=== PATIENT | female | born 1930 | race Caucasian/White ===

== ENCOUNTER 2016-11-22 14:15 | Emergency (ER) | payer MEDICARE ==
[~2016-11-22] VITALS: Wt 77.1 kg
[~2016-11-22 14:15] MED LIST: DAYPRO600 M1 PO; HYDROCODONE BIT1 T11 PO; LISINOPRIL10 M1 PO; LOPRESSOR50 M1 PO; OMEPRAZOLE20 M2 PO; ZOFRAN ODT4 MG SL
[2016-11-22] MEDS ORDERED: PHENERGAN25 M3 PO (14:18)
[2016-11-22 14:40] LABS: BASO % 0.5 % (0.0-1.0); EOS # 0.2 10*3/uL (0.0-0.4); EOS % 1.7 % (1.0-4.0); HEMATOCRIT 39.3 % (37.0-47.0); LYMPH # 2.6 10*3/uL (1.3-4.4); LYMPH % 29.3 % (27.0-41.0); MEAN CELL VOLUME 71.7 fl (81.0-99.0); MEAN CORPUSCULAR HGB 21.9 pg (27.0-31.0); MEAN CORPUSCULAR HGB CONC 30.5 g/dl (33.0-37.0); MEAN PLATELET VOLUME 10.2 fl (9.6-12.3); MONO # 0.7 10*3/uL (0.1-1.0); MONO % 8.3 % (3.0-9.0); NEUT # 5.3 10*3/uL (2.3-7.9); NEUT % 59.9 % (47.0-73.0); PLATELET COUNT AUTOMATED 203 10*3/uL (130-400); RED BLOOD COUNT 5.48 10*6/uL (4.10-5.10); WHITE BLOOD COUNT 8.9 10*3/uL (4.8-10.8)
[2016-11-22 14:50] LABS: PROTHROMBIN TIME 10.4 SECONDS (9.0-12.4)
[2016-11-22 14:57] LABS: ALBUMIN 3.5 gm/dl (3.1-4.5); ALKALINE PHOSPHATASE 168 U/L (45-117); BILIRUBIN, TOTAL 0.4 mg/dl (0.2-1.0); BUN 18 mg/dl (7-24); CARBON DIOXIDE 23 mmol/L (21-32); CHLORIDE 108 mmol/L (98-107); EST GLOM FILT AFRICAN AMERICAN 53 ml/min; GLUCOSE 109 mg/dL (65-99); MAGNESIUM 2.2 mg/dL (1.5-2.1); POTASSIUM 4.5 mmol/L (3.5-5.1); SGOT/AST 45 IU/L (3-35); SGPT/ALT 28 U/L (12-78); SODIUM 140 mmol/L (136-145); TOTAL PROTEIN 6.9 gm/dL (6.4-8.2)
[2016-11-22 14:58] LABS: TROPONIN I < 0.015 ng/ml (<0.045)
== END 2016-11-22 15:52 | disposition left against medical advice (07) ==
LOC: ED 14:15
PROVIDERS: Nurse Practitioner Family
DX: R07.9 Chest pain, unspecified (principal); I10 Essential (primary) hypertension

== ENCOUNTER 2016-12-12 13:07 | Inpatient (IN) | payer MEDICARE ==
[~2016-12-12] VITALS: Ht 165.1 cm; Wt 79.0 kg
[~2016-12-12 13:07] MED LIST changes: +PHENERGAN25 M3 PO
[2016-12-12 13:15] VITALS: BP 168/60
[2016-12-12 14:31] LABS: BASO % 0.2 % (0.0-1.0); EOS # 0.1 10*3/uL (0.0-0.4); EOS % 0.5 % (1.0-4.0); HEMATOCRIT 37.9 % (37.0-47.0); HEMOGLOBIN 11.4 g/dl (12.0-16.0); LYMPH # 0.9 10*3/uL (1.3-4.4); MEAN CELL VOLUME 72.9 fl (81.0-99.0); MEAN CORPUSCULAR HGB 21.9 pg (27.0-31.0); MEAN CORPUSCULAR HGB CONC 30.1 g/dl (33.0-37.0); MEAN PLATELET VOLUME 10.5 fl (9.6-12.3); MONO # 0.3 10*3/uL (0.1-1.0); MONO % 3.6 % (3.0-9.0); NEUT # 8.1 10*3/uL (2.3-7.9); NEUT % 85.4 % (47.0-73.0); PLATELET COUNT AUTOMATED 194 10*3/uL (130-400); RED CELL DISTRI WIDTH 17.5 % (0-14.5); WHITE BLOOD COUNT 9.4 10*3/uL (4.8-10.8)
[2016-12-12 14:38] LABS: PROTHROMBIN TIME 10.6 SECONDS (9.0-12.4)
[2016-12-12 14:46] LABS: ALBUMIN 3.4 gm/dl (3.1-4.5); ALKALINE PHOSPHATASE 237 U/L (45-117); BILIRUBIN, TOTAL 0.7 mg/dl (0.2-1.0); BUN 20 mg/dl (7-24); CARBON DIOXIDE 25 mmol/L (21-32); CHLORIDE 107 mmol/L (98-107); CKMB 3.7 ng/ml (0.5-3.6); CPK 45 U/L (26-192); EST GLOM FILT AFRICAN AMERICAN > 60 ml/min; GLUCOSE 130 mg/dL (65-99); LDH 316 U/L (84-246); POTASSIUM 4.4 mmol/L (3.5-5.1); SGOT/AST 265 IU/L (3-35); SGPT/ALT 106 U/L (12-78); SODIUM 140 mmol/L (136-145); TOTAL PROTEIN 6.6 gm/dL (6.4-8.2)
[2016-12-12 14:48] LABS: C-REACTIVE PROTEIN < 0.29 MG/DL (0-0.3); TROPONIN I < 0.015 ng/ml (<0.045)
[2016-12-12 15:56] LABS: BILIRUBIN NEGATIVE (NEGATIVE); BLOOD NEGATIVE (NEGATIVE); CLARITY SL CLOUDY (CLEAR); COLOR YELLOW (YELLOW); GLUCOSE NEGATIVE (NEGATIVE); KETONE NEGATIVE (NEGATIVE); LEUKO ESTERASE 2+ (NEGATIVE); NITRITE NEGATIVE (NEGATIVE); PROTEIN NEGATIVE (NEGATIVE); SPECIFIC GRAVITY 1.015 (1.005-1.030); UROBILINOGEN >= 8.0 E.U./dl (0.2-1.0)
[2016-12-12 16:00] VITALS: BP 158/64
[2016-12-12 16:05] LABS: BACTERIA 4+; RBC 0-2 rbc/hpf (0-2); URINE REFLEX COMMENT YES (NO); WBC 21-30 wbc/hpf (0-5)
[2016-12-12] MEDS ORDERED: LISINOPRIL20 MG PO (17:05)
[2016-12-12] MEDS ORDERED: PRAMIPEXOLE DI0.5 MG PO (17:05)
[2016-12-12] MEDS ORDERED: CELECOXIB200 M1 PO (17:06)
[2016-12-12] MEDS ORDERED: ZOLPIDEM TART5 MG PO (17:06)
[2016-12-12 17:19] VITALS: BP 152/80
[2016-12-12 19:40] LABS: HEMOGLOBIN A1c 5.5 % (4.8-5.6)
[2016-12-12 20:00] VITALS: BP 163/70
[2016-12-13] VITALS: BP 146/57
[2016-12-13 04:23] LABS: BASO % 0.2 % (0.0-1.0); EOS # 0.1 10*3/uL (0.0-0.4); EOS % 0.6 % (1.0-4.0); HEMATOCRIT 36.2 % (37.0-47.0); HEMOGLOBIN 11.1 g/dl (12.0-16.0); LYMPH # 1.6 10*3/uL (1.3-4.4); LYMPH % 16.6 % (27.0-41.0); MEAN CELL VOLUME 71.1 fl (81.0-99.0); MEAN CORPUSCULAR HGB 21.8 pg (27.0-31.0); MEAN CORPUSCULAR HGB CONC 30.7 g/dl (33.0-37.0); MEAN PLATELET VOLUME 10.8 fl (9.6-12.3); MONO % 10.2 % (3.0-9.0); NEUT # 6.9 10*3/uL (2.3-7.9); NEUT % 72.1 % (47.0-73.0); PLATELET COUNT AUTOMATED 171 10*3/uL (130-400); RED BLOOD COUNT 5.09 10*6/uL (4.10-5.10); RED CELL DISTRI WIDTH 17.3 % (0-14.5); WHITE BLOOD COUNT 9.6 10*3/uL (4.8-10.8)
[2016-12-13 04:55] LABS: ALBUMIN 2.9 gm/dl (3.1-4.5); BUN 19 mg/dl (7-24); CARBON DIOXIDE 25 mmol/L (21-32); CHLORIDE 106 mmol/L (98-107); EST GLOM FILT AFRICAN AMERICAN > 60 ml/min; GLUCOSE 91 mg/dL (65-99); MAGNESIUM 2.1 mg/dL (1.5-2.1); POTASSIUM 4.3 mmol/L (3.5-5.1); SGOT/AST 213 IU/L (3-35); SODIUM 138 mmol/L (136-145)
[2016-12-13 05:03] LABS: ALKALINE PHOSPHATASE 274 U/L (45-117); BILIRUBIN, TOTAL 1.6 mg/dl (0.2-1.0); FREE T4 1.31 ng/dl (0.76-1.46); PHOSPHOROUS 3.4 mg/dL (2.5-4.9); SGPT/ALT 173 U/L (12-78); THYROID STIM HORMONE (HS) 0.667 uIU/ml (0.358-4.75)
[2016-12-13 07:06] LABS: HEPATITIS C VIRUS ANTIBODY <0.1 s/co (0.0-0.9)
[2016-12-13 08:00] VITALS: BP 136/52
[2016-12-13 12:00] VITALS: BP 148/53
[2016-12-13 13:05] LABS: FOLIC ACID 11.73 ng/mL (>5.38); VITAMIN D, 25-HYDROXY 37.1 ng/mL (30-100)
[2016-12-13 15:01] VITALS: BP 112/64
[2016-12-13] MEDS ORDERED: IMDUR SA60 M1 PO (15:34)
[2016-12-13] MEDS ORDERED: NIFEDIPINE ER30 M1 PO (15:34)
[2016-12-13] MEDS ORDERED: HYDR25T PO (15:34)
[2016-12-13 16:00] VITALS: BP 111/53
== END 2016-12-13 16:30 | disposition home or self-care (01) | DRG 313 ==
LOC: ED 13:07 → 5E 16:03 → EDHOLD 16:03 → 5E 16:34
PROVIDERS: Internal Medicine; Physician Assistant
DX: R07.89 Other chest pain (principal); E44.0 Moderate protein-calorie malnutrition; R00.1 Bradycardia, unspecified; R10.13 Epigastric pain; I12.9 Hypertensive chronic kidney disease with stage 1 through stage 4 chronic kidney disease, or unspecified chronic kidney disease; K21.9 Gastro-esophageal reflux disease without esophagitis; R74.0 Nonspecific elevation of levels of transaminase and lactic acid dehydrogenase [LDH]; D50.9 Iron deficiency anemia, unspecified; R73.9 Hyperglycemia, unspecified; N18.3 Chronic kidney disease, stage 3 (moderate); R82.71 Bacteriuria; Z90.49 Acquired absence of other specified parts of digestive tract; Z90.710 Acquired absence of both cervix and uterus; Z83.3 Family history of diabetes mellitus; Z82.3 Family history of stroke; Z90.722 Acquired absence of ovaries, bilateral; Z90.79 Acquired absence of other genital organ(s); Z80.0 Family history of malignant neoplasm of digestive organs; Z79.899 Other long term (current) drug therapy; Z68.28 Body mass index [BMI] 28.0-28.9, adult

== ENCOUNTER 2016-12-14 10:47 | Inpatient (IN) | payer MEDICARE ==
[~2016-12-14] VITALS: Ht 165.1 cm; Wt 78.7 kg
[2016-12-14] VITALS (9 sets, daily range): BP systolic 107–150; BP diastolic 44–99
--- NOTE | ~2016-12-14 | CON ---
[place], [place] REPORT OF CONSULTATION [id number] UNIT #: [id number] ROOM: 519 DOCTOR: TABITHA MATUTE [facility] BIRTHDATE: [birth year] DOS: 12/14/2016 HISTORY OF PRESENT ILLNESS: This is an 86-year-old female came in with history of palpitations, not feeling well, and came to the Emergency Room, but denies any dizziness, any progressive fatigue or lightheaded or dyspnea. Not in a timely on last admission has any history of syncope or presyncope. The patient has a history of hypertension and has been on adjusted medication, last time rate was below 50s and hence the beta blocking agents has been stopped and readjust other medications to maintain the optimal blood pressure. Now the vital signs were stable, but the patient having frequent PACs quite often but did not document any atrial fibrillation at any time. Heart rate never been more than 100 or 110 showed the low rate is more than 57. No extreme tachycardia or bradycardia. No history of symptoms unlikely. The patient does not need any pacemaker at this time. The patient has some chest discomfort last admission. She thought epigastric, but last time stress test was in 2007. No recent workup for coronary artery disease. No history of heart attack. No history of smoking. The patient has a history of chronic kidney disease stage 3, hypertension, and gastroesophageal reflux disease. PAST SURGICAL HISTORY: History of tonsillectomy and adenoidectomy, abdominal hysterectomy and bilateral salpingo-oophorectomy. The patient has history of cholecystectomy. SOCIAL HISTORY: No alcohol, drug, or tobacco use. FAMILY HISTORY: Father has history of stroke and , history of esophageal cancer. Mother ; history of stroke. ALLERGIES: No known allergies. MEDICATIONS: The patient is on Celebrex taken as needed. The patient is on hydrochlorothiazide, isosorbide mononitrate, lisinopril, nifedipine, and omeprazole. REVIEW OF SYSTEMS: HEENT: Unremarkable. CARDIOPULMONARY: As described. GASTROINTESTINAL: As described. GENITOURINARY: As described. NEUROLOGICAL: No stroke. No syncope. PHYSICAL EXAMINATION: GENERAL: Alert, responding well. SKIN: Warm, not diaphoretic. VITAL SIGNS: Blood pressure 131/90, afebrile, and respiratory rate 20. LABORATORY DATA: Hemoglobin 11.3. Electrolytes are normal. Creatinine is 1.23. GFR is 41. Troponin is unremarkable. DIAGNOSIS: Frequent PACs and with symptoms, nonsustained ventricular [place], [place] REPORT OF CONSULTATION NAME: IRENE MI UNIT #: [id number] ROOM: [facility] DOCTOR: TABITHA MATUET [facility] BIRTHDATE: [birth year] tachycardia. No documented atrial fibrillation and a small dose of beta shawn and is on Lanoxin. Monitor the patient with stable heart rate. No extreme tachycardia or bradycardia. Probably, we will discharge the patient and follow the patient as an outpatient in a day or two, but I will rather monitor the patient with small dose of beta shawn and Lanoxin today and may be in the morning tomorrow and may be discharged tomorrow afternoon. I will follow the patient as an outpatient. May do the myocardial perfusion scan as an outpatient or in this hospital as an outpatient. I will review the scan and if this scan is abnormal, further evaluation for coronary artery disease, otherwise conservative medical therapy. I do not feel at this time, the patient is not quite symptomatic to do pacemaker. No need for pacemaker at this time. ANGE LU MD CM:CONSTR:REPORT OF CONSULTATION 13 12/14/16 2222 interface
[~2016-12-14 10:47] MED LIST changes: +CELECOXIB200 M1 PO; +HYDR25T PO; +IMDUR SA60 M1 PO; +LISINOPRIL20 MG PO; +NIFEDIPINE ER30 M1 PO; +PRAMIPEXOLE DI0.5 MG PO; +ZOLPIDEM TART5 MG PO
[2016-12-14 11:23] LABS: BASO % 0.4 % (0.0-1.0); EOS # 0.1 10*3/uL (0.0-0.4); EOS % 0.8 % (1.0-4.0); HEMATOCRIT 36.9 % (37.0-47.0); HEMOGLOBIN 11.3 g/dl (12.0-16.0); LYMPH # 1.7 10*3/uL (1.3-4.4); LYMPH % 20.1 % (27.0-41.0); MEAN CELL VOLUME 71.9 fl (81.0-99.0); MEAN CORPUSCULAR HGB CONC 30.6 g/dl (33.0-37.0); MEAN PLATELET VOLUME 10.2 fl (9.6-12.3); MONO # 1.3 10*3/uL (0.1-1.0); MONO % 14.9 % (3.0-9.0); NEUT # 5.4 10*3/uL (2.3-7.9); NEUT % 63.6 % (47.0-73.0); PLATELET COUNT AUTOMATED 188 10*3/uL (130-400); RED BLOOD COUNT 5.13 10*6/uL (4.10-5.10); RED CELL DISTRI WIDTH 17.6 % (0-14.5); WHITE BLOOD COUNT 8.5 10*3/uL (4.8-10.8)
[2016-12-14 11:31] LABS: PROTHROMBIN TIME 10.8 SECONDS (9.0-12.4)
[2016-12-14 11:42] LABS: BUN 21 mg/dl (7-24); CARBON DIOXIDE 24 mmol/L (21-32); CHLORIDE 104 mmol/L (98-107); EST GLOM FILT AFRICAN AMERICAN 50 ml/min; GLUCOSE 160 mg/dL (65-99); POTASSIUM 4.1 mmol/L (3.5-5.1); SODIUM 138 mmol/L (136-145)
[2016-12-14 11:48] LABS: THYROID STIM HORMONE (HS) 0.937 uIU/ml (0.358-4.75)
[2016-12-14 11:49] LABS: TROPONIN I < 0.015 ng/ml (<0.045)
[2016-12-15] VITALS: BP 136/59
[2016-12-15 06:59] LABS: BASO % 0.4 % (0.0-1.0); EOS # 0.1 10*3/uL (0.0-0.4); EOS % 1.4 % (1.0-4.0); HEMATOCRIT 37.3 % (37.0-47.0); HEMOGLOBIN 11.7 g/dl (12.0-16.0); LYMPH # 2.5 10*3/uL (1.3-4.4); MEAN CELL VOLUME 70.9 fl (81.0-99.0); MEAN CORPUSCULAR HGB 22.2 pg (27.0-31.0); MEAN CORPUSCULAR HGB CONC 31.4 g/dl (33.0-37.0); MEAN PLATELET VOLUME 10.9 fl (9.6-12.3); MONO # 1.2 10*3/uL (0.1-1.0); MONO % 14.8 % (3.0-9.0); NEUT # 4.2 10*3/uL (2.3-7.9); PLATELET COUNT AUTOMATED 194 10*3/uL (130-400); RED BLOOD COUNT 5.26 10*6/uL (4.10-5.10); RED CELL DISTRI WIDTH 18.1 % (0-14.5); WHITE BLOOD COUNT 8.1 10*3/uL (4.8-10.8)
[2016-12-15 07:04] LABS: BUN 19 mg/dl (7-24); CARBON DIOXIDE 24 mmol/L (21-32); CHLORIDE 103 mmol/L (98-107); EST GLOM FILT AFRICAN AMERICAN > 60 ml/min; GLUCOSE 81 mg/dL (65-99); MAGNESIUM 2.1 mg/dL (1.5-2.1); PHOSPHOROUS 2.7 mg/dL (2.5-4.9); POTASSIUM 4.2 mmol/L (3.5-5.1); SODIUM 136 mmol/L (136-145)
[2016-12-15 08:00] VITALS: BP 139/62
[2016-12-15 12:00] VITALS: BP 125/58
[2016-12-15] MEDS ORDERED: LANOXIN0.125 MG PO (14:55)
[2016-12-15] MEDS ORDERED: LOPRESSOR25 MG PO (14:55)
== END 2016-12-15 16:10 | disposition home or self-care (01) | DRG 310 ==
LOC: ED 10:47 → EDHOLD 13:39 → 5E 14:02
PROVIDERS: Emergency Medicine; Student in an Organized Health Care Education/Training Program
DX: I47.1 Supraventricular tachycardia (principal); N18.3 Chronic kidney disease, stage 3 (moderate); I12.9 Hypertensive chronic kidney disease with stage 1 through stage 4 chronic kidney disease, or unspecified chronic kidney disease; F41.9 Anxiety disorder, unspecified; R73.9 Hyperglycemia, unspecified; D50.9 Iron deficiency anemia, unspecified; K21.9 Gastro-esophageal reflux disease without esophagitis; I49.1 Atrial premature depolarization; Z90.710 Acquired absence of both cervix and uterus; Z90.722 Acquired absence of ovaries, bilateral; Z79.899 Other long term (current) drug therapy; Z90.49 Acquired absence of other specified parts of digestive tract; Z82.3 Family history of stroke; Z80.0 Family history of malignant neoplasm of digestive organs; Z83.3 Family history of diabetes mellitus

== ENCOUNTER → 2017-11-07 | Outpatient (CLI) | payer MEDICARE, BC ==
[~2017-11-07] MED LIST changes: +LANOXIN0.125 MG PO; +LOPRESSOR25 MG PO
== END | disposition home or self-care (01) ==
LOC: US 06:26
DX: K76.9 Liver disease, unspecified (principal); Z90.49 Acquired absence of other specified parts of digestive tract

== ENCOUNTER → 2018-01-15 | Outpatient (CLI) | payer MEDICARE, BC ==
[~2018-01-15] MED LIST changes: +ELIQUIS5 M1 PO; +METOPROLOL SUCC50 M1 PO; +OSTERA TABLET1 EACH PO; +[UNRECOGNIZED DRUG - REMARK]
== END | disposition home or self-care (01) ==
LOC: CT 10:41
DX: K44.9 Diaphragmatic hernia without obstruction or gangrene (principal); R11.0 Nausea

== ENCOUNTER → 2018-02-13 | Outpatient (CLI) | payer MEDICARE, BC | END | disposition home or self-care (01) | LOC: RAD 10:39 | DX: M47.892 Other spondylosis, cervical region (principal); M47.896 Other spondylosis, lumbar region; M81.0 Age-related osteoporosis without current pathological fracture; M25.78 Osteophyte, vertebrae; M54.2 Cervicalgia; M54.5 Low back pain ==

== ENCOUNTER → 2018-03-18 | Day surgery (SDC) | payer MEDICARE, BC ==
[~2018-03-18] VITALS: Ht 165.1 cm; Wt 72.6 kg
--- NOTE | ~2018-03-18 | O ---
[place], [place] OPERATIVE NOTE [id number] UNIT #: [id number] ROOM: DOCTOR: DONNELL LUGO MD BIRTHDATE: [birth year] DOS: 04/03/2018 HISTORY OF PRESENT ILLNESS: An 87-year-old patient who was presented with retained biliary stent. The patient is status post previous ERCP and biliary work. ALLERGIES: No known medication. PAST MEDICAL HISTORY: Atrial fibrillation. PAST MEDICAL HISTORY: Hypertension. FAMILY HISTORY: Esophageal carcinoma in father. SOCIAL HISTORY: Nonsmoker, nonalcohol consumer. PAST SURGICAL HISTORY: Cholecystectomy, hysterectomy, tonsillectomy, and papillotomy. PROCEDURE: Today's procedure part of investigation is ERCP plus removal of the common duct retained stent with a snare plus ERCP and balloon sweep of common duct and sludge extractions. PREMEDICATION: Propofol by Anesthesia. SCOPE: Olympus side-viewing duodenoscope. REPORT: After putting the patient in left lateral position and application of lubricant to the scope, the scope was introduced. Thereafter, under direct visualization, I advanced through the length of esophagus into gastric pouch in front of the duodenal bulb. Existing stent was snared and orally extracted. After that scope was reintroduced back to the common duct and papilla of Vater was re-approached with balloon was dilated and balloon over the guidewire was sent to the proximal hepatic ducts. Multi sweeps was done, sludge and small debris and small stones extracted. The patient extubated, tolerated the procedure well. IMPRESSION: ERCP and retained common duct stent removal plus balloon sweep of common bile duct, and removal of sludge and small stones and dilation of papilla. [place], [place] OPERATIVE NOTE NAME: IRENE MI UNIT #: [id number] ROOM: DOCTOR: DONNELL LUGO MD BIRTHDATE: [birth year] DONNELL LUGO MD CM:OPRECORD:OPERATIVE NOTE [id number] DONNELL LUGO MD 04/03/18 1723 interface
--- NOTE | ~2018-03-18 | O ---
[place], [place] OPERATIVE NOTE [id number] UNIT #: [id number] ROOM: DOCTOR: BRITTNEY MATUTE,DONNELL BIRTHDATE: [birth year] DOS: 04/01/2018 INDICATIONS: The patient has presented today 87 years old for removal of retained biliary stent. ALLERGIES: No known medication. PAST MEDICAL HISTORY: Atrial fibrillation, hypertension. SOCIAL HISTORY: Nonsmoker, nonalcohol consumer. PAST SURGICAL HISTORY: Hysterectomy, cholecystectomy, tonsillectomy. PROCEDURE: Today's procedure, which is 03/18/2018 ____. Today's procedure on 03/18/2018. IMPRESSION: ERCP plus removal of obstructed stent and balloon sweep of common duct. PREMEDICATION: Propofol. SCOPE: Olympus side-viewing duodenoscope. REPORT: After putting the patient in left lateral position and application of lubricant to the scope, the scope was introduced; thereafter, under direct visualization, advanced through the length of esophagus without difficulty into gastric pouch into duodenal bulb. Obstructed common duct stent was snared and orally pulled out. At this stage, cannulization of common duct was undertaken. Hepatic radicles opacified guidewire was introduced. DONNELL LUGO MD CM:OPRECORD:OPERATIVE NOTE [id number] DONNELL LUGO MD 04/03/18 1027 GARY PERDOMO MIS.R
[2018-03-18 11:00] VITALS: BP 149/59
[2018-03-18 13:58] VITALS: BP 83/32
[2018-03-18 14:13] VITALS: BP 85/38
[2018-03-18 14:28] VITALS: BP 124/55
[2018-03-18 14:40] VITALS: BP 136/69
== END | disposition home or self-care (01) ==
LOC: SDC 03-16 14:00
DX: Z46.59 Encounter for fitting and adjustment of other gastrointestinal appliance and device (principal); K80.50 Calculus of bile duct without cholangitis or cholecystitis without obstruction; I10 Essential (primary) hypertension; I48.91 Unspecified atrial fibrillation; K21.9 Gastro-esophageal reflux disease without esophagitis; Z80.0 Family history of malignant neoplasm of digestive organs; Z90.49 Acquired absence of other specified parts of digestive tract; Z90.710 Acquired absence of both cervix and uterus; Z98.890 Other specified postprocedural states; Z79.01 Long term (current) use of anticoagulants; Z79.899 Other long term (current) drug therapy; Z83.3 Family history of diabetes mellitus; Z82.3 Family history of stroke

== ENCOUNTER 2018-03-21 21:59 | Inpatient (IN) | payer MEDICARE, BC ==
[~2018-03-21] VITALS: Ht 165.1 cm; Wt 72.7 kg
--- NOTE | ~2018-03-21 | O ---
[place], [place] OPERATIVE NOTE NAME: IRENE MI [facility] #: [id number] UNIT #: [id number] ROOM: 427 [facility] [birth year] DOS: 03/25/2018 GASTROENDOSCOPIC REPORT INDICATIONS: The patient has presented with profound anemia, drop in H and H. She is telling us that she has been having tarry stools. The patient has been status post common duct stent removal, status post previous papillotomy, pneumobilia that all expected status post recent large stone removal from common duct as well. The patient with mild abnormalities on LFTs, which could be a sludge mobilization; however, we were concerned about the melanotic stools and anemia. PROCEDURE: Today's procedure part of investigation is panendoscopy and colonoscopy. PREMEDICATION: Propofol. SCOPE: Olympus forward-viewing gastroscope Q10 video. REPORT: After putting the patient in left lateral position and application of lubricant to the scope, the scope was introduced, thereafter under direct visualization advanced through the length of esophagus without difficulty. Esophagus, cervical, thoracic distal within normal limits. Gastric pouch was entered. Gastritis, bile reflux type, was noticed. Antral biopsy was obtained. Bile was suctioned out. Duodenum was entered. Duodenum, first, second and third part of duodenum appears to be nonulcerated, no evidence of flooding noticed, a large volume of bile is flowing into the duodenum from papilla. No evidence of active bleed. The patient extubated, tolerated the procedure well. IMPRESSION: Bile reflux gastritis status post antral biopsy, a large hiatal hernia. PLAN AND DISCUSSION: We are going to proceed with colonoscopic evaluation. INDICATIONS: The patient has presented with profound anemia status post transfusion, undergoing investigation. PROCEDURE: Today's procedure part of investigation is colonoscopy plus snare polypectomy. PREMEDICATION: Propofol. SCOPE: Olympus forward-viewing colonoscope 10L video. REPORT: After putting the patient in left lateral position and application of lubricant to the scope, the scope was introduced, thereafter under direct visualization advanced through the length of colon without difficulty. Severe diverticulosis was appreciated. Base of the cecum explored, appendiceal orifice identified, ileocecal valve was photographed. Scope was gradually withdrawn. Air was suctioned out up to the sigmoid colon. A small polypoid lesion with [place], [place] OPERATIVE NOTE NAME: IRENE MI UNIT #: [id number] ROOM: 427 DOCTOR: BRITTNEY MATUTE,DONNELL BIRTHDATE: [birth year] snare was polypectomized. She tolerated the procedure well. IMPRESSION: Severe diverticulosis, sessile polyp sigmoid colon status post snare polypectomy. LFTs have improved, most likely the sludge has been flooding the biliary system and been evacuated, now that the bile flow is freely established. Pneumobilia is of no concern, status post papillotomy, and stent removal from common duct previously. PLAN AND DISCUSSION: Withholding the anticoagulants 3 more days. I am going to proceed with feeding this patient today. Follow up on H and H as an outpatient. I thank you very much indeed for your kind referral. DONNELL LUGO MD CM:OPRECORD:OPERATIVE NOTE [id number] DONNELL LUGO MD 03/25/18 1659 interface
--- NOTE | ~2018-03-21 | CON ---
[place], [place] REPORT OF CONSULTATION NAME: IRENE MI [facility] #: [id number] UNIT #: [id number] ROOM: 427 DOCTOR: CYNDI LUGO [facility] BIRTHDATE: [birth year] DOS: 03/25/2018 GASTROENDOSCOPIC CONSULTATION HISTORY OF PRESENT ILLNESS: The patient is known to our service because of the previous ERCP and stent removal. Apparently, this was 10 days ago and she takes her anticoagulant and she develops black tarry stool. I was called for addressing the issue and clarification. The patient has sent a message that she is not going to have endoscopy done. Therefore, she was postponed to two days later. Yesterday for endoscopy and colonoscopy in view of the fact that the patient has microcytic anemia with H and H of 8 and 26 and platelet of 255. INR was 1.0. Comprehensive metabolic panel, GFR greater than 60. Electrolytes balance, liver function test all abnormal. SGOT and SGPT 250 and 200 plus respectively, alkaline phosphatase 279, bilirubin of 1.8. Hemoglobin A1c 4.8. Comprehensive metabolic panel readdressed and abnormality similarly exists. Her H and H dropped to [address] scan of the abdomen and pelvis was done, which was concerning for interval formation of moderate, extensive pneumobilia, which is secondary to her papillotomy that she has had, diverticulosis also was seen. Latest H and H post-transfusion has improved to 9.6 and 32. PAST MEDICAL HISTORY: Associated with hyperglycemia, abnormal LFTs, anxiety, microcytic anemia, atrial fibrillation, supraventricular tachycardia history as well as essential hypertension, chronic renal insufficiency, and anxiety. PAST SURGICAL HISTORY: Hysterectomy, T and A, cholecystectomy, ERCP, papillotomy, stent placement, and bilateral salpingo-oophorectomy. SOCIAL HISTORY: Nonsmoker, nonalcohol consumer. FAMILY HISTORY: Noncontributory. REVIEW OF SYSTEMS: HEENT: Denies double vision, blurred vision. RESPIRATORY: Denies acute shortness of breath. CARDIOVASCULAR: Denies acute chest pain. DIGESTIVE SYSTEM: Melanotic stool. No emesis. PHYSICAL EXAMINATION: VITAL SIGNS: Stable. GENITOURINARY: Within normal limits. NECK: Supple, no thyromegaly, no cervical lymphadenopathy. CHEST: Symmetric anatomy, equal expansion. No wheeze, no rhonchi. HEART: Irregular, no rub. ABDOMEN: Soft. No hepato-organomegaly. Bowel sounds present. EXTREMITIES: No cyanosis, no pedal edema. NEUROLOGIC: Alert and oriented to time, place, and person. Sensory and motor intact. Cranial nerves 2-12 intact. IMPRESSION: Pneumobilia extensively secondary to papillotomy and biliary work, previously abnormal liver function test to be defined as far as this persistent [place], [place] REPORT OF CONSULTATION NAME: IRENE MI UNIT #: [id number] ROOM: 427 DOCTOR: DONNELL LUGO MD BIRTHDATE: [birth year] is concerned. Microcytic indices, status post multi-transfusion as well as black tarry stool, status post intake of anticoagulants, ruling out the etiology. PLAN AND DISCUSSION: Endoscopy of upper tract as well as evaluation of colon, both is in order, this is going to be organized. Thank you very much indeed. DONNELL LUGO MD CM:CONSTR:REPORT OF CONSULTATION 1559 04/03/18 9613 interface
[2018-03-21 21:59] VITALS: BP 156/84
[~2018-03-21 21:59] MED LIST changes: -METOPROLOL SUCC50 M1 PO
[2018-03-21 22:27] LABS: BASO # 0.1 10*3/uL (0.0-0.1); BASO % 0.5 % (0.0-1.0); EOS # 0.1 10*3/uL (0.0-0.4); EOS % 0.6 % (1.0-4.0); HEMATOCRIT 26.7 % (37.0-47.0); HEMOGLOBIN 8.3 g/dl (12.0-16.0); LYMPH # 2.8 10*3/uL (1.3-4.4); LYMPH % 25.5 % (27.0-41.0); MEAN CELL VOLUME 68.8 fl (81.0-99.0); MEAN CORPUSCULAR HGB 21.4 pg (27.0-31.0); MEAN CORPUSCULAR HGB CONC 31.1 g/dl (33.0-37.0); MEAN PLATELET VOLUME 9.7 fl (9.6-12.3); MONO # 0.9 10*3/uL (0.1-1.0); MONO % 8.3 % (3.0-9.0); NEUT # 7.1 10*3/uL (2.3-7.9); NEUT % 64.6 % (47.0-73.0); PLATELET COUNT AUTOMATED 225 10*3/uL (130-400); RED BLOOD COUNT 3.88 10*6/uL (4.10-5.10); RED CELL DISTRI WIDTH 17.4 % (0-14.5); WHITE BLOOD COUNT 10.9 10*3/uL (4.8-10.8)
[2018-03-21 22:42] LABS: ALBUMIN 2.5 gm/dl (3.1-4.5); ALKALINE PHOSPHATASE 279 U/L (45-117); BUN 35 mg/dl (7-24); CHLORIDE 105 mmol/L (98-107); CREATININE 0.84 mg/dL (0.55-1.02); LIPASE 105 U/L (73-393); POTASSIUM 4.2 mmol/L (3.5-5.1); SGOT/AST 259 IU/L (3-35); SGPT/ALT 201 U/L (12-78); SODIUM 137 mmol/L (136-145); TOTAL PROTEIN 5.9 gm/dL (6.4-8.2)
[2018-03-21 23:15] VITALS: BP 122/66
[2018-03-22] VITALS (8 sets, daily range): BP systolic 98–150; BP diastolic 40–87
[2018-03-22] MEDS ORDERED: METOPROLOL SUCC50 M1 PO (00:23)
[2018-03-22 03:56] LABS: ALBUMIN 2.4 gm/dl (3.1-4.5); ALKALINE PHOSPHATASE 244 U/L (45-117); BUN 31 mg/dl (7-24); CHLORIDE 107 mmol/L (98-107); CHOLESTEROL 105 mg/dL (<200); CREATININE 0.82 mg/dL (0.55-1.02); HDL CHOLESTEROL 27 mg/dl (40-60); LDL CHOLESTEROL 52 mg/dL (9-159); PHOSPHOROUS 2.4 mg/dL (2.5-4.9); POTASSIUM 4.2 mmol/L (3.5-5.1); SGOT/AST 212 IU/L (3-35); SGPT/ALT 178 U/L (12-78); SODIUM 140 mmol/L (136-145); TOTAL PROTEIN 5.6 gm/dL (6.4-8.2); TRIGLYCERIDES 129 mg/dl (<150); VLDL CHOLESTEROL 26 mg/dL (6-40)
[2018-03-22 03:57] LABS: FREE T4 1.52 ng/dl (0.76-1.46)
[2018-03-22 07:07] LABS: VITAMIN D, 25-HYDROXY 30.2 ng/mL (30-100)
[2018-03-22 07:38] LABS: BASO % 0.4 % (0.0-1.0); EOS # 0.1 10*3/uL (0.0-0.4); EOS % 1.6 % (1.0-4.0); HEMATOCRIT 24.1 % (37.0-47.0); HEMOGLOBIN 7.3 g/dl (12.0-16.0); LYMPH # 2.3 10*3/uL (1.3-4.4); LYMPH % 30.9 % (27.0-41.0); MEAN CELL VOLUME 68.9 fl (81.0-99.0); MEAN CORPUSCULAR HGB 20.9 pg (27.0-31.0); MEAN CORPUSCULAR HGB CONC 30.3 g/dl (33.0-37.0); MEAN PLATELET VOLUME 10.4 fl (9.6-12.3); MONO # 0.8 10*3/uL (0.1-1.0); MONO % 10.6 % (3.0-9.0); NEUT # 4.2 10*3/uL (2.3-7.9); NEUT % 56.1 % (47.0-73.0); PLATELET COUNT AUTOMATED 182 10*3/uL (130-400); RED CELL DISTRI WIDTH 17.2 % (0-14.5); WHITE BLOOD COUNT 7.5 10*3/uL (4.8-10.8)
[2018-03-22 18:48] LABS: HEMOGLOBIN 9.3 g/dl (12.0-16.0)
[2018-03-22 18:49] LABS: HEMATOCRIT 30.3 % (37.0-47.0)
[2018-03-23] VITALS: BP 108/60
[2018-03-23 07:20] LABS: BASO % 0.5 % (0.0-1.0); EOS # 0.2 10*3/uL (0.0-0.4); EOS % 2.6 % (1.0-4.0); HEMATOCRIT 27.4 % (37.0-47.0); HEMOGLOBIN 8.6 g/dl (12.0-16.0); LYMPH # 2.1 10*3/uL (1.3-4.4); LYMPH % 27.3 % (27.0-41.0); MEAN CELL VOLUME 71.9 fl (81.0-99.0); MEAN CORPUSCULAR HGB 22.6 pg (27.0-31.0); MEAN CORPUSCULAR HGB CONC 31.4 g/dl (33.0-37.0); MEAN PLATELET VOLUME 9.7 fl (9.6-12.3); MONO % 12.9 % (3.0-9.0); NEUT # 4.3 10*3/uL (2.3-7.9); NEUT % 56.2 % (47.0-73.0); PLATELET COUNT AUTOMATED 189 10*3/uL (130-400); RED BLOOD COUNT 3.81 10*6/uL (4.10-5.10); RED CELL DISTRI WIDTH 19.4 % (0-14.5); WHITE BLOOD COUNT 7.6 10*3/uL (4.8-10.8)
[2018-03-23 07:41] LABS: ALBUMIN 2.4 gm/dl (3.1-4.5); ALKALINE PHOSPHATASE 212 U/L (45-117); CHLORIDE 105 mmol/L (98-107); CREATININE 0.84 mg/dL (0.55-1.02); PHOSPHOROUS 3.2 mg/dL (2.5-4.9); SGOT/AST 85 IU/L (3-35); SGPT/ALT 103 U/L (12-78); SODIUM 139 mmol/L (136-145); TOTAL PROTEIN 5.4 gm/dL (6.4-8.2)
[2018-03-23 07:55] LABS: BUN 21 mg/dl (7-24)
[2018-03-23 08:00] VITALS: BP 120/60
[2018-03-23 12:00] VITALS: BP 119/60
[2018-03-23 16:00] VITALS: BP 127/40
[2018-03-23 20:00] VITALS: BP 114/53
[2018-03-24] VITALS: BP 124/64
[2018-03-24 06:08] LABS: HEPATITIS B SURFACE AG Negative (Negative)
[2018-03-24 06:56] LABS: BASO % 0.5 % (0.0-1.0); EOS # 0.2 10*3/uL (0.0-0.4); EOS % 2.5 % (1.0-4.0); HEMATOCRIT 28.2 % (37.0-47.0); HEMOGLOBIN 8.6 g/dl (12.0-16.0); LYMPH % 27.5 % (27.0-41.0); MEAN CELL VOLUME 72.5 fl (81.0-99.0); MEAN CORPUSCULAR HGB 22.1 pg (27.0-31.0); MEAN CORPUSCULAR HGB CONC 30.5 g/dl (33.0-37.0); MEAN PLATELET VOLUME 10.4 fl (9.6-12.3); MONO # 0.8 10*3/uL (0.1-1.0); MONO % 10.3 % (3.0-9.0); NEUT # 4.3 10*3/uL (2.3-7.9); NEUT % 58.8 % (47.0-73.0); PLATELET COUNT AUTOMATED 216 10*3/uL (130-400); RED BLOOD COUNT 3.89 10*6/uL (4.10-5.10); RED CELL DISTRI WIDTH 20.2 % (0-14.5); WHITE BLOOD COUNT 7.3 10*3/uL (4.8-10.8)
[2018-03-24 12:00] VITALS: BP 106/44
[2018-03-24 16:00] VITALS: BP 132/63
[2018-03-24 20:00] VITALS: BP 150/77
[2018-03-25] VITALS (7 sets, daily range): BP systolic 112–132; BP diastolic 45–60
[2018-03-25 06:41] LABS: BASO # 0.1 10*3/uL (0.0-0.1); BASO % 0.5 % (0.0-1.0); EOS # 0.1 10*3/uL (0.0-0.4); EOS % 1.1 % (1.0-4.0); HEMOGLOBIN 9.6 g/dl (12.0-16.0); LYMPH # 2.4 10*3/uL (1.3-4.4); MEAN CELL VOLUME 74.6 fl (81.0-99.0); MEAN CORPUSCULAR HGB 22.4 pg (27.0-31.0); MEAN PLATELET VOLUME 10.5 fl (9.6-12.3); MONO % 10.2 % (3.0-9.0); NEUT # 5.9 10*3/uL (2.3-7.9); NEUT % 62.9 % (47.0-73.0); PLATELET COUNT AUTOMATED 232 10*3/uL (130-400); RED BLOOD COUNT 4.29 10*6/uL (4.10-5.10); RED CELL DISTRI WIDTH 20.7 % (0-14.5); WHITE BLOOD COUNT 9.4 10*3/uL (4.8-10.8)
[2018-03-25 06:46] LABS: ALBUMIN 2.6 gm/dl (3.1-4.5); ALKALINE PHOSPHATASE 204 U/L (45-117); BUN 15 mg/dl (7-24); CHLORIDE 106 mmol/L (98-107); CREATININE 0.86 mg/dL (0.55-1.02); POTASSIUM 3.6 mmol/L (3.5-5.1); SGOT/AST 47 IU/L (3-35); SGPT/ALT 68 U/L (12-78); SODIUM 137 mmol/L (136-145)
== END 2018-03-25 18:32 | disposition home or self-care (01) | DRG 377 ==
LOC: ED 21:59 → EDHOLD 23:32 → 4E 23:46
PROVIDERS: Emergency Medicine; Family Medicine; Internal Medicine; Internal Medicine Gastroenterology
PROC: 30233N1 Transfusion of Nonautologous Red Blood Cells into Peripheral Vein, Percutaneous Approach (ICD-10-PCS; 2018-03-22)
PROC: 0DB78ZX Excision of Stomach, Pylorus, Via Natural or Artificial Opening Endoscopic, Diagnostic (ICD-10-PCS; principal; 2018-03-25)
PROC: 0DBN8ZZ Excision of Sigmoid Colon, Via Natural or Artificial Opening Endoscopic (ICD-10-PCS; principal; 2018-03-25)
DX: K57.91 Diverticulosis of intestine, part unspecified, without perforation or abscess with bleeding (principal); E43 Unspecified severe protein-calorie malnutrition; I47.1 Supraventricular tachycardia; K29.71 Gastritis, unspecified, with bleeding; I12.9 Hypertensive chronic kidney disease with stage 1 through stage 4 chronic kidney disease, or unspecified chronic kidney disease; N18.3 Chronic kidney disease, stage 3 (moderate); R00.1 Bradycardia, unspecified; R00.2 Palpitations; D50.0 Iron deficiency anemia secondary to blood loss (chronic); K21.9 Gastro-esophageal reflux disease without esophagitis; F41.9 Anxiety disorder, unspecified; B19.20 Unspecified viral hepatitis C without hepatic coma; K44.9 Diaphragmatic hernia without obstruction or gangrene; K63.5 Polyp of colon; I48.0 Paroxysmal atrial fibrillation; R74.0 Nonspecific elevation of levels of transaminase and lactic acid dehydrogenase [LDH]; Z79.01 Long term (current) use of anticoagulants; Z68.26 Body mass index [BMI] 26.0-26.9, adult; Z90.710 Acquired absence of both cervix and uterus; Z90.79 Acquired absence of other genital organ(s); Z90.722 Acquired absence of ovaries, bilateral; Z90.49 Acquired absence of other specified parts of digestive tract; Z80.0 Family history of malignant neoplasm of digestive organs; Z83.3 Family history of diabetes mellitus; Z82.3 Family history of stroke; Z79.899 Other long term (current) drug therapy

== ENCOUNTER → 2019-06-15 | Outpatient (CLI) | payer MEDICARE, BC ==
[~2019-06-15] MED LIST changes: +METOPROLOL SUCC50 M1 PO
== END | disposition home or self-care (01) ==
LOC: RAD 10:57
DX: M51.37 Other intervertebral disc degeneration, lumbosacral region (principal)